=== PATIENT | female | born 1990 | race American Indian/Alaskan Native ===

== ENCOUNTER 2016-12-09 18:58 | Outpatient (CLI) | payer OTHER ==
[2016-12-09 20:37] VITALS: BP 129/67
[2016-12-09] MEDS ORDERED: LACTATED RINGERS 1,000 ML IV ONE (21:35)
--- NOTE | 2016-12-10 07:49 | Ultrasound Report ---
ULTRASOUND BIOPHYSICAL PROFILE: History: well being Technique: Transabdominal ultrasound with Doppler interrogation. 2 - breathing movements 2 - movements 2 - posture and tone 2 - Qualitative amniotic fluid volume 8 - TOTAL SCORE OF POSSIBLE 8 Heart Rate (bpm) 142
== END 2016-12-09 22:48 | disposition home or self-care (01) ==
LOC: TRG 18:58
PROVIDERS: ATTEND Obstetrics & Gynecology
DX: O62.9 Abnormality of forces of labor, unspecified (principal); Z87.891 Personal history of nicotine dependence; Z3A.38 38 weeks gestation of pregnancy
CPT/HCPCS: 59025; 76819; 96360

== ENCOUNTER 2016-12-11 21:15 | Inpatient (IN) | payer OTHER ==
[2016-12-11] MEDS ORDERED: SUBLIMAZE IV ONE (23:07)
[2016-12-11] MEDS ORDERED: ZOFRAN IV PRN (23:38)
[2016-12-11] MEDS ORDERED: BRETHINE SUB-Q PRN (23:38)
[2016-12-11] MEDS ORDERED: ePHEDrine SULFATE IV PRN (23:38)
[2016-12-11] MEDS ORDERED: BRETHINE IVP PRN (23:38)
[2016-12-11] MEDS ORDERED: XYLOCAINE 2% INFILTRATI ONE (23:38)
[2016-12-11] MEDS ORDERED: STADOL IV PRN (23:38)
[2016-12-11] MEDS ORDERED: SUBLIMAZE IV PRN (23:38)
[2016-12-11] MEDS ORDERED: POLYCILLIN/NS 2 GM/100 ML 2 GM/100 ML BAG IV ONE (23:38)
[2016-12-11] MEDS ORDERED: MINERAL OIL PO PRN (23:38)
[2016-12-11] MEDS ORDERED: LACTATED RINGERS 1,000 ML IV SCH (23:45)
[2016-12-11] MEDS ORDERED: Fluarix Quad 2017-2018(36 MOS+) IM ONE (23:51)
[2016-12-12 00:21] LABS: Hematocrit 36.8 % (30.3-42.9); Hemoglobin 12.3 gm/dl (10.1-14.3); Mean Corpuscular HGB Conc 34 % (30-34); Mean Corpuscular Hemoglobin 32 pg (28-32); Mean Corpuscular Volume 97 fl (79-97); Platelet Count 118 K/mm3 (140-440); Red Blood Count 3.81 M/mm3 (3.65-5.03); Red Cell Distribution Width 13.1 % (13.2-15.2)
[2016-12-12] MEDS: PITOCin/NS 20 UNIT/1000ML DRIP 20 UNITS/1,000 ML BAG IV SCH ×2 (01:44→02:40)
--- NOTE | 2016-12-12 02:10 | Procedure Note ---
OB Delivery Note - Delivery Date of Delivery: 12/12/16 Surgeon: CHELSEA HENRIQUEZ Estimated blood loss: 200cc - Vaginal Delivery presentation: vertex Delivery position: OP Intrapartum events: precipitous labor- <3hr Delivery induction: none Delivery monitor: external FHT, external uterine Route of delivery: Delivery placenta: spontaneous Delivery cord: 3 umbilical vessels Delivery laceration: 2nd degree Delivery repair: vicryl Anesthesia: local Delivery comments: Viable male delivered over intact perineum with apgars 8,9. and weight 7 pounds 14 ounces. Infant placed on maternal abdomen. Cord clamped and cut when done pulsating. Placenta delivered spontaneously and intact with 3vc. Small 2nd degree laceration repaired with 2.0 vicryl. Excellent hemostasis. Patient tolerated procedure well. - Infant A at 1 minute: 8 at 5 minutes: 9 Infant Gender: Male (7 pounds 14 ounces)
--- NOTE | 2016-12-12 02:15 | History and Physical Report ---
History of Present Illness Date of examination: 12/12/16 Date of admission: 12/11/16 21:53 Chief complaint: My water broke History of present illness: Patient is a 26 year old who presents with SROM and in active labor. records are not available for review. Patient was to be delivered at [place] but was brought here by EMS. 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, herpes - Obstetrical History Expected Date of Delivery: 12/20/16 Actual Gestation: 38 Week(s) 6 Day(s) : 4 Para: 1 Medications and Allergies Allergies Allergy/AdvReac Type Severity Reaction Status Date / Time No Known Allergies Allergy Unverified 05/08/15 16:19 Home Medications Medication Instructions Recorded Confirmed Last Taken Type No Known Home Medications [No 05/08/15 05/08/15 Unknown History Reported Home Medications] Active Meds: Active Medications Butorphanol Tartrate (Stadol) 1 mg IV Q2H PRN PRN Reason: Pain, Moderate (4-6) Fentanyl (Sublimaze) 100 mcg IV Q2H PRN PRN Reason: Labor Pain Ampicillin Sodium (Polycillin/Ns 1 Gm/50 Ml) 1 gm in 50 mls @ 100 mls/hr IV Q4HR ESTIVEN PRN Reason: Protocol Lactated Ringer's (Lactated Ringers) 1,000 mls @ 125 mls/hr IV DIRECT [facility] Last Admin: 12/12/16 00:11 Dose: 125 mls/hr Oxytocin/Sodium Chloride (Pitocin/Ns 20 Unit/1000ml Drip) 20 units in 1,000 mls @ 125 mls/hr IV DIRECT ESTIVEN Last Admin: 12/12/16 01:44 Dose: 125 mls/hr Influenza Virus Vaccine Quadrival (Fluarix Quad [id number](36 Mos+)) 0.5 ml IM .ONCE ONE Stop: 12/12/16 12:01 Mineral Oil (Mineral Oil) 30 ml PO QHS PRN PRN Reason: Constipation Last Admin: 12/12/16 01:44 Dose: 30 ml Ondansetron HCl (Zofran) 4 mg IV Q8H PRN PRN Reason: Nausea And Vomiting Review of Systems All systems: negative Genitourinary: leakage of fluid, contractions - Vital Signs Vital signs: Vital Signs Temp Pulse Resp BP 98.8 F 77 18 132/82 12/11/16 23:28 12/11/16 23:28 12/11/16 23:28 12/11/16 23:28 Temp Pulse Resp BP Pulse Ox 98.8 F 108 H 18 133/65 12/11/16 23:28 12/12/16 02:03 12/11/16 23:28 12/12/16 02:03 - Physical Exam Breasts: Positive: deferred Cardiovascular: Regular rate, Normal S1, Normal S2 Lungs: Positive: Clear to auscultation Abdomen: Positive: normal appearance, soft, normal bowel sounds Genitourinary (Female): Positive: normal external genitalia, normal perenium Vagina: Positive: normal moisture - Obstetrical Cervical Dilatation: 2 Cervical Effacement Percentage: 50 station: -2 Uterine Contraction Pattern: Regular Uterine Tone Measurement Phase: Contraction Uterine Contraction Intensity: Moderate Results Result Diagrams: 12/11/16 23:54 Abnormal lab results 12/11/16 Range/Units 23:54 WBC 21.0 H (4.5-11.0) K/mm3 RDW 13.1 L (13.2-15.2) % Plt Count 118 L (140-440) K/mm3 All other labs normal. Assessment and Plan IUP at 38.6 weeks in active labor. Admit for delivery. Will give one dose of antibiotics. Anticipate .
[2016-12-12] MEDS ORDERED: POLYCILLIN/NS 1 GM/50 ML 1 GM/50 ML BAG IV SCH (03:42)
[2016-12-12] MEDS ORDERED: PHENERGAN PO PRN (03:49)
[2016-12-12] MEDS ORDERED: ZOFRAN IV PRN (03:49)
[2016-12-12] MEDS ORDERED: MILK OF MAGNESIA PO PRN (03:49)
[2016-12-12] MEDS ORDERED: BENADRYL PO PRN (03:49)
[2016-12-12] MEDS ORDERED: TUCKS PAD TP PRN (03:49)
[2016-12-12] MEDS ORDERED: PHENERGAN PR PRN (03:49)
[2016-12-12] MEDS ORDERED: TYLENOL PO PRN (03:49)
[2016-12-12] MEDS ORDERED: LANSINOH TP PRN (03:49)
[2016-12-12] MEDS ORDERED: DULCOLAX PR PRN (03:49)
[2016-12-12] MEDS ORDERED: SODIUM CHLORIDE FLUSH SYRINGE 10 ML IV NR (04:00)
[2016-12-12] MEDS: MOTRIN PO SCH ×3 (05:00→19:36)
[2016-12-12] MEDS: COLACE PO SCH (10:51)
[2016-12-12] MEDS: PRENATAL VITAMIN PO SCH (10:51)
[2016-12-12] MEDS ORDERED: Fluarix Quad 2017-2018(36 MOS+) IM ONE (12:00)
[2016-12-12 15:52] LABS: Hematocrit 33.6 % (30.3-42.9); Hemoglobin 11.2 gm/dl (10.1-14.3)
[2016-12-12] MEDS: NORCO 5/325 PO PRN (19:36)
[2016-12-13] MEDS: MOTRIN PO SCH ×3 (00:30→23:28)
[2016-12-13] MEDS: NORCO 5/325 PO PRN ×3 (01:43→18:08)
--- NOTE | 2016-12-13 08:24 | Progress Note ---
Assessment and Plan - Patient Problems (1) Active labor at term Current Visit: Yes Status: Acute Plan to address problem: Patient doing well Monitored patient and infant for 48 hours secondary to unknown GBS status Subjective - Subjective Date of service: 12/13/16 Interval history: The patient is currently without complaints. Her pain is well-controlled. She is breast feeding adequately. Patient reports: appetite normal, voiding normally, pain well controlled [place]: doing well, nursing well Objective - Vital Signs Latest vital signs: Vital Signs Temp Pulse Resp BP BP BP 12/12/16 23:30 98.6 F 69 18 121/76 12/12/16 19:30 98.6 F 71 101/72 12/12/16 16:34 98.9 F 84 20 118/70 12/12/16 12:35 98.8 F 78 18 129/84 12/12/16 09:16 98.0 F 18 115/59 Intake and Output 12/12/16 12/13/16 12/13/16 22:59 06:59 14:59 Intake Total 910 Balance 910 Intake: Oral 610 Intake, Free Water 300 Other: Total, Intake Amount 250 Voiding Method Toilet # Voids 1 - Exam Uterus: Present: normal, firm
--- NOTE | 2016-12-13 08:26 | Discharge Summary ---
Providers - Providers Date of Admission: 12/11/16 21:53 Date of discharge: 12/14/16 Attending physician: CHELSEA HENRIQUEZ Primary care physician: CHELSEA HENRIQUEZ Hospitalization Reason for admission: active labor Discharge diagnosis: IUP at term delivered baby: male Hospital course: The patient was admitted in active labor. She was scheduled to be delivered at [place]. records were available for review. Patient was observed 48 hours secondary to unknown GBS status. Condition at discharge: Good Disposition: DC-01 TO HOME OR SELFCARE - Discharge Diagnoses (1) Active labor at term Status: Acute Plan - Discharge Medications Prescriptions: HYDROcodone/APAP 5-325 [[place] 5/325] 1 each PO Q6HR PRN #30 tablet PRN Reason: Pain Ibuprofen [Motrin] 800 mg PO Q8HR PRN #60 tablet PRN Reason: Pain - Provider Discharge Summary Activity: no sex for 6 weeks, no heavy lifting 4 weeks, no strenuous exercise Diet: routine Instructions: routine Additional instructions: [] Smoking cessation referral if applicable(refer to patient education folder for contact #) [] Refer to [facility] Booklet Call your doctor immediately for: * Fever > 100.5 * Heavy vaginal bleeding ( >1 pad per hour) * Severe persistent headache * Shortness of breath * Reddened, hot, painful area to leg or breast * Follow-up 4 weeks - Follow up plan
[2016-12-13] MEDS: PRENATAL VITAMIN PO SCH (09:30)
[2016-12-13] MEDS: COLACE PO SCH ×2 (09:30→21:47)
[2016-12-14] MEDS: MOTRIN PO SCH ×2 (05:21→12:08)
[2016-12-14] MEDS ORDERED: BOOSTRIX IM ONE (06:00)
[2016-12-14] MEDS: NORCO 5/325 PO PRN (09:10)
[2016-12-14 09:55] VITALS: BP 121/80
[2016-12-14] MEDS: COLACE PO SCH (12:08)
[2016-12-14] MEDS: PRENATAL VITAMIN PO SCH (12:08)
== END 2016-12-14 17:00 | disposition home or self-care (01) | DRG 775 ==
LOC: TRG 21:15 → LD 21:53 → OB 12-12 03:48
PROVIDERS: ADMIT Obstetrics & Gynecology; ATTEND Obstetrics & Gynecology
PROC: 10E0XZZ Delivery of Products of Conception, External Approach (ICD-10-PCS; principal; 2016-12-12)
PROC: 0KQM0ZZ Repair Perineum Muscle, Open Approach (ICD-10-PCS; 2016-12-12)
PROC: 3E0234Z Introduction of Serum, Toxoid and Vaccine into Muscle, Percutaneous Approach (ICD-10-PCS; 2016-12-12)
DX: O62.3 Precipitate labor (principal); Z3A.38 38 weeks gestation of pregnancy; Z37.0 Single live birth; O70.1 Second degree perineal laceration during delivery; Z23 Encounter for immunization
CPT/HCPCS: 36415; 85014; 85018; 85027; 86850; 86900; 86901; 90471; 90686; 90715; 99211; A6250; G0463; J0290; J2590; J3010; J7120

== ENCOUNTER 2018-09-04 04:14 | Emergency (ER) | payer SELFPAY ==
[2018-09-04 04:39] VITALS: BP 128/77
[2018-09-04 05:17] LABS: HCG Qualitative,Urine Negative (Negative)
[2018-09-04 05:26] LABS: Bacteria,Urine 2+ /HPF (Negative); Bilirubin,Urine NEG (Negative); Blood,Urine NEG (Negative); Color,Urine Yellow (Yellow); Mucus,Urine 2+ /HPF; Protein,Urine <15 mg/dL mg/dL (Negative); Urobilinogen,Urine < 2.0 mg/dL (<2.0)
== END 2018-09-04 09:50 | disposition left against medical advice (07) ==
LOC: ED 04:14
DX: N89.8 Other specified noninflammatory disorders of vagina (principal); Z53.21 Procedure and treatment not carried out due to patient leaving prior to being seen by health care provider
CPT/HCPCS: 81001; 81025

== ENCOUNTER 2018-10-05 14:01 | Emergency (ER) | payer MEDICAID ==
--- NOTE | 2018-10-05 14:08 | Event Note ---
ED Screening Note ED Screening Note: VAG DC NO DYSURIA SUPRAPUBIC PAIN PMH NONE RX NONE This initial assessment/diagnostic orders/clinical plan/treatment(s) is/are subject to change based on patients health status, clinical progression and re- assessment by fellow clinical providers in the ED. Further treatment and workup at subsequent clinical providers discretion. Patient/guardian urged not to elope from the ED as their condition may be serious if not clinically assessed and managed. Initial orders include: UPREG UA EVAL ACC
[2018-10-05 15:31] LABS: HCG Qualitative,Urine Negative (Negative)
[2018-10-05 15:34] LABS: Bilirubin,Urine NEG (Negative); Blood,Urine NEG (Negative); Color,Urine Yellow (Yellow); Mucus,Urine 2+ /HPF; Protein,Urine <15 mg/dL mg/dL (Negative); Urobilinogen,Urine < 2.0 mg/dL (<2.0)
[2018-10-05 15:44] VITALS: BP 101/67
[2018-10-05] MEDS ORDERED: IBUPROFEN PO ONE (16:08)
--- NOTE | 2018-10-05 16:29 | Emergency Department Report ---
ED Female HPI - General Chief complaint: Abdominal Pain Stated complaint: ABD PAIN/DISCHARGE/URINATION PAIN Time Seen by Provider: 10/05/18 14:06 Source: patient Mode of arrival: Ambulatory Limitations: No Limitations - History of Present Illness Initial comments: This is a 28-year-old female who presents complaining of dysuria for the past couple days. Patient also had made some mild vaginal irritation. She denies fever/chills/abdominal pain/pelvic pain/nausea /vomiting. Patient denies malodorous discharge or vaginal lesions MD Complaint: dysuria - Related Data Home Medications Medication Instructions Recorded Confirmed Last Taken Vit-Fe Fumar-FA [ 1 tab PO QDAY 12/14/16 12/14/16 12/01/16 Vitamin] Previous Rx's Medication Instructions Recorded Last Taken Type HYDROcodone/APAP 5-325 [[place] 1 each PO Q6HR PRN #30 tablet 12/13/16 Unknown Rx 5/325] Ibuprofen [Motrin] 800 mg PO Q8HR PRN #60 tablet 12/13/16 Unknown Rx Fluconazole [Diflucan TAB] 150 mg PO ONCE #1 tablet 10/05/18 Unknown Rx Nitrofurantoin [place]/M-Cryst 100 mg PO Q12HR #14 capsule 10/05/18 Unknown Rx [Macrobid CAP] Allergies Allergy/AdvReac Type Severity Reaction Status Date / Time No Known Allergies Allergy Verified 10/05/18 14:02 ED Review of Systems ROS: Stated complaint: ABD PAIN/DISCHARGE/URINATION PAIN Other details as noted in HPI Comment: All other systems reviewed and negative ED Past Medical Hx - Past Medical History Previous Medical History?: No Hx Hypertension: No Hx Congestive Heart Failure: No Hx Diabetes: No Hx Deep Vein Thrombosis: No Hx Renal Disease: No Hx Sickle Cell Disease: No Hx Seizures: No Hx Asthma: No Hx COPD: No Hx HIV: No - Surgical History Past Surgical History?: No - Social History Smoking Status: Never Smoker Substance Use Type: Marijuana - Medications Home Medications: Home Medications Medication Instructions Recorded Confirmed Last Taken Type HYDROcodone/APAP 5-325 [[place] 1 each PO Q6HR PRN #30 tablet 12/13/16 Unknown Rx 5/325] Ibuprofen [Motrin] 800 mg PO Q8HR PRN #60 tablet 12/13/16 Unknown Rx Vit-Fe Fumar-FA [ 1 tab PO QDAY 12/14/16 12/14/16 12/01/16 History Vitamin] Fluconazole [Diflucan TAB] 150 mg PO ONCE #1 tablet 10/05/18 Unknown Rx Nitrofurantoin [place]/M-Cryst 100 mg PO Q12HR #14 capsule 10/05/18 Unknown Rx [Macrobid CAP] ED Physical Exam - General Limitations: No Limitations General appearance: alert, in no apparent distress - Head Head exam: Present: atraumatic, normocephalic - Eye Eye exam: Present: normal appearance - ENT ENT exam: Present: mucous membranes moist - Neck Neck exam: Present: normal inspection - Respiratory Respiratory exam: Present: normal lung sounds bilaterally. Absent: respiratory distress - Cardiovascular Cardiovascular Exam: Present: regular rate, normal rhythm. Absent: systolic murmur, diastolic murmur, rubs, gallop - GI/Abdominal GI/Abdominal exam: Present: soft, normal bowel sounds - External exam: Present: normal external exam - Extremities Exam Extremities exam: Present: normal inspection - Back Exam Back exam: Present: normal inspection. Absent: tenderness, CVA tenderness (R), CVA tenderness (L) - Neurological Exam Neurological exam: Present: alert, oriented X3, normal gait - Psychiatric Psychiatric exam: Present: normal affect, normal mood - Skin Skin exam: Present: warm, dry, intact, normal color. Absent: rash ED Course Vital Signs 10/05/18 15:43 Temperature 98.8 F Pulse Rate 82 Respiratory 16 Rate Blood Pressure 101/67 [Left] O2 Sat by Pulse 100 Oximetry ED Medical Decision Making - Medical Decision Making 28-year-old female presents with UTI/vaginitis. Urinalysis positive for leukocyte esterase indicating a mild GENESIS. Patient was treated with metronidazole in the ED. Discussed antibiotic therapy for discharge as well as a Diflucan for prophylaxis E sensation. 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 Patient is in no acute distress she is able to speak in complete sentences and understands instructions. Critical care attestation.: If time is entered above; I have spent that time in minutes in the direct care of this critically ill patient, excluding procedure time. ED Disposition Clinical Impression: UTI (urinary tract infection), Vaginitis Disposition: TO HOME OR SELFCARE Is pt being admited?: No Does the pt Need Aspirin: No Condition: Stable Instructions: Abdominal Pain (ED) Additional Instructions: Make sure to follow up with the primary care physician as discussed. Take all your medications as you've been prescribed. If you have any worsening symptoms or develop new symptoms please return to ED immediately. Prescriptions: Fluconazole [Diflucan TAB] 150 mg PO ONCE #1 tablet Nitrofurantoin [place]/M-Cryst [Macrobid CAP] 100 mg PO Q12HR #14 capsule Referrals: SHANNA TAYLOR MD [Primary Care Provider] - 3-5 Days [facility] [Provider Group] - 3-5 Days [facility] [Outside] - 3-5 Days [facility] [Outside] - 3-5 Days Forms: Work/School Release Form(ED) Time of Disposition: 17:30
[2018-10-05] MEDS ORDERED: FLAGYL PO ONE (16:32)
== END 2018-10-05 17:41 | disposition home or self-care (01) ==
LOC: ED 14:01
DX: N39.0 Urinary tract infection, site not specified (principal); N76.0 Acute vaginitis; F12.10 Cannabis abuse, uncomplicated
CPT/HCPCS: 81001; 81025; 87086